=== PATIENT | female | born 2000 | race Two or more races ===

== ENCOUNTER 2024-07-21 15:39 | Emergency (ER) | payer OTHER ==
[~2024-07-21] VITALS: Ht 162.6 cm; Wt 59.0 kg
[2024-07-21] MEDS ORDERED: RINGERS SOLUTION,LACTATED 1,000 ML IV SCH (16:30)
[2024-07-21 17:03] LABS: HEMATOCRIT 25.8 % (36.0-45.00); HEMOGLOBIN 8.8 g/dL (12.0-15.00); MEAN CELL VOLUME 86.5 fL (80.00-100.00); MEAN CORPUSCULAR HEMOGLOBIN 29.5 pg (27.00-32.0); MEAN CORPUSCULAR HGB CONC 34.1 g/dl (32.0-36.0); PLATELET COUNT 219 K/uL (150-450); RED BLOOD COUNT 2.98 M/uL (4.00-6.00); RED CELL DISTRIBUTION WIDTH 14.2 % (11.5-14.5)
[2024-07-21 17:20] LABS: BILIRUBIN TOTAL 0.3 mg/dL (0.3-1.2); CREATININE SERUM 0.52 mg/dL (0.55-1.02); GFR 143.68; GLOBULINA 2.8 G/DL (2.4-3.5); POTASSIUM 3.88 mEq/L (3.5-5.1); TOTAL PROTEIN 6.8 gm/dL (6.4-8.2)
[2024-07-21 17:36] LABS: URINE APPEARANCE Clear; URINE BILIRRUBIN Negative (NEGATIVE); URINE BLOOD Negative; URINE COLOR Yellow; URINE GLUCOSE Negative (NEGATIVE); URINE KETONE 15 (NEGATIVE); URINE LEUKOCYTE Negative; URINE NITRATE Negative; URINE PROTEIN Negative (NEGATIVE); URINE UROBILINOGEN 0.2 E.U./dl
[2024-07-21 17:40] LABS: URINE BACTERIA 411.9 uL (0.0-1933); URINE EPITHELIAL CELLS 22.3 uL (0.0-38.8)
[2024-07-21 17:56] LABS: URINE RBC 1.9 uL (0.0-20.8)
[2024-07-21] MEDS ORDERED: FEOSOL325 MG PO (21:56)
== END 2024-07-21 22:12 | disposition home or self-care (01) ==
LOC: ER 15:40
PROVIDERS: General Practice
DX: R53.81 Other malaise (principal); D64.9 Anemia, unspecified